=== PATIENT | female | born 1955 | race Two or more races ===

== ENCOUNTER 2025-03-23 14:11 | Inpatient (IN) | payer MEDICARE, OTHER ==
[~2025-03-23] VITALS: Ht 160 cm; Wt 59.0 kg
[2025-03-23 14:17] VITALS: BP 136/91
[2025-03-23] MEDS ORDERED: HYDROCHLOROTHIAZIDE (14:31)
[2025-03-23] MEDS ORDERED: IBUP-1953 PO (14:31)
[2025-03-23] MEDS ORDERED: ASPI81TA31 PO (14:31)
[2025-03-23] MEDS ORDERED: HYDR12.55 PO (15:02)
[2025-03-23] MEDS: BLOOD SUGAR DIAGNOSTIC 1 EACH STRIP VI ONE (15:15)
[2025-03-23 15:46] VITALS: BP 167/72; TEMP 98.2; O2SAT 98
[2025-03-23] MEDS ORDERED: MAG HYDROX/AL HYDROX/SIMETH 30 ML LIQUID UDC PO PRN (16:30)
[2025-03-23] MEDS ORDERED: MAGNESIUM HYDROXIDE 30 ML LIQUID UDC PO PRN (16:30)
[2025-03-23 19:53] VITALS: BP 169/78; TEMP 98.4; O2SAT 95
[2025-03-23] MEDS: TEMAZEPAM 7.5 MG CAPSULE PO ONE (20:55)
[2025-03-23] MEDS: ACETAMINOPHEN 325 MG TABLET PO PRN (22:39)
[2025-03-24 07:39] VITALS: BP 114/80; TEMP 98; O2SAT 98
[2025-03-24] MEDS: HYDROCHLOROTHIAZIDE 12.5 MG CAPSULE PO SCH (08:37)
[2025-03-24] MEDS: ASPIRIN 81 MG TAB.CHEW PO SCH (08:37)
[2025-03-24] MEDS: LORAZEPAM 1 MG TABLET PO PRN (08:37)
[2025-03-24] MEDS: NICOTINE 21 MG/24HR PATCH TD SCH (08:43)
[2025-03-24] MEDS: IBUPROFEN 400 MG TABLET PO PRN (14:51)
[2025-03-24] MEDS: HALOPERIDOL LACTATE 5 MG/1 ML VIAL IM ONE (15:54)
[2025-03-24] MEDS: LORAZEPAM 2 MG/1 ML VIAL IM ONE (15:54)
[2025-03-24 16:04] VITALS: BP 157/80; TEMP 98; O2SAT 98
[2025-03-24 20:00] VITALS: BP 153/94; TEMP 98; O2SAT 95
[2025-03-25 08:18] VITALS: BP 162/81; TEMP 98; O2SAT 98
[2025-03-25] MEDS: MULTIVITAMINS,THERAPEUTIC TABLET PO SCH (08:33)
[2025-03-25] MEDS ORDERED: MULTIVITAMINS 5 ML LIQUID UDC NG SCH (09:00)
[2025-03-25] MEDS: OLANZAPINE 10 MG VIAL IM ONE (14:58)
[2025-03-25] MEDS: DIVALPROEX 250 MG TABLET.DR PO SCH (14:58)
[2025-03-25 15:28] LABS: ASPARTATE AMINOTRANSFERASE 21.0 U/L (15-37); CREATININE 1.1 mg/dL (0.6-1.3); SODIUM SERUM 138.0 mmol/L (136-145); TOTAL PROTEIN, SERUM 6.5 g/dL (6.4-8.2); UREA NITROGEN, BLOOD 29.0 mg/dL (7-18)
[2025-03-25] MEDS: LORAZEPAM 0.5 MG TABLET PO PRN (19:52)
[2025-03-25 20:07] VITALS: BP 168/79; TEMP 97.3; O2SAT 97
[2025-03-26 08:47] VITALS: BP 140/61; TEMP 98; O2SAT 98
[2025-03-26] MEDS: HALOPERIDOL LACTATE 5 MG/1 ML VIAL IM ONE (14:54)
[2025-03-26] MEDS: LORAZEPAM 2 MG/1 ML VIAL IM ONE (14:54)
[2025-03-26 16:12] VITALS: BP 131/69; TEMP 98; O2SAT 98
[2025-03-26] MEDS: DIVALPROEX 250 MG TABLET.DR PO SCH (16:26)
[2025-03-26] MEDS ORDERED: OLANZAPINE ZYDIS 5 MG TAB.RAPDIS PO PRN (16:45)
[2025-03-26 19:49] VITALS: BP 147/40; TEMP 98.4; O2SAT 96
[2025-03-27 08:21] VITALS: BP 131/61; TEMP 98; O2SAT 98
[2025-03-27 16:21] VITALS: BP 166/73; TEMP 98; O2SAT 98
[2025-03-27] MEDS: CLONIDINE HCL 0.1 MG TABLET PO PRN (17:24)
[2025-03-27] MEDS: OLANZAPINE ZYDIS 5 MG TAB.RAPDIS PO SCH (20:51)
[2025-03-28] MEDS: OLANZAPINE ZYDIS 5 MG TAB.RAPDIS PO SCH (09:02)
[2025-03-28 09:07] VITALS: BP 136/67; TEMP 98; O2SAT 96
[2025-03-28 19:53] VITALS: BP 132/64; TEMP 97.9; O2SAT 96
[2025-03-28] MEDS: TEMAZEPAM 7.5 MG CAPSULE PO PRN (23:27)
[2025-03-29 08:19] VITALS: BP 95/58; TEMP 98; O2SAT 98
[2025-03-29] MEDS: OLANZAPINE 2.5 MG TABLET PO SCH (09:01)
[2025-03-29 15:22] VITALS: BP 162/91; TEMP 98; O2SAT 98
[2025-03-29] MEDS: OLANZAPINE 5 MG TABLET PO SCH ×2 (17:32→20:46)
[2025-03-29 19:38] VITALS: BP 137/53; TEMP 97.9; O2SAT 96
[2025-03-30 08:24] VITALS: BP 132/66; TEMP 98.2; O2SAT 98
[2025-03-30 15:08] VITALS: BP 131/80; TEMP 98; O2SAT 98
[2025-03-30 19:58] VITALS: BP 130/66; TEMP 98; O2SAT 96
[2025-03-31 08:43] VITALS: BP 123/58; TEMP 98; O2SAT 96
[2025-03-31 15:21] VITALS: BP 138/75; TEMP 98; O2SAT 100
[2025-03-31 20:00] VITALS: BP 134/63; TEMP 98.2; O2SAT 96
[2025-04-01 07:30] LABS: PLATELET COUNT (AUTO) 178 K/uL (179-408); RED BLOOD CELL COUNT(AUTO) 3.56 MIL/uL (3.63-4.92); RED CELL DISTRIBUTION WIDTH 26.8 % (12.3-17.7); WHITE BLOOD COUNT (AUTO) 4.4 K/uL (3.8-11.8)
[2025-04-01 08:19] VITALS: BP 154/73; TEMP 98; O2SAT 96
[2025-04-01 16:28] VITALS: BP 132/82; TEMP 98; O2SAT 100
[2025-04-01 20:14] VITALS: BP 130/62; TEMP 97.8; O2SAT 97
[2025-04-02 08:29] VITALS: BP 146/88; TEMP 98; O2SAT 96
[2025-04-02 16:12] VITALS: BP 138/71; TEMP 98; O2SAT 100
== END 2025-04-02 18:15 | DRG 885 ==
LOC: ER 14:11 → GPS 14:49
PROVIDERS: ADMIT Psychiatry & Neurology Psychosomatic Medicine; ATTEND Nurse Practitioner Acute Care
DX: F25.0 Schizoaffective disorder, bipolar type (principal); E44.1 Mild protein-calorie malnutrition; Z59.02 Unsheltered homelessness; E88.09 Other disorders of plasma-protein metabolism, not elsewhere classified; I10 Essential (primary) hypertension; F41.9 Anxiety disorder, unspecified; F43.10 Post-traumatic stress disorder, unspecified; Z88.3 Allergy status to other anti-infective agents; Z88.2 Allergy status to sulfonamides; E78.5 Hyperlipidemia, unspecified; G89.29 Other chronic pain; M54.50 Low back pain, unspecified; M79.675 Pain in left toe(s); Z79.82 Long term (current) use of aspirin; Z79.899 Other long term (current) drug therapy; F17.210 Nicotine dependence, cigarettes, uncomplicated; Z98.1 Arthrodesis status
CPT/HCPCS: 36415; 70450; 71045; 73660; 80164; 85025; 93005; J1630; J2060; J2358; J3490